=== PATIENT | female | born 1970 | race Hispanic/Latino ===

== ENCOUNTER 2017-06-30 02:57 | Inpatient (IN) | payer OTHER ==
--- NOTE | 2017-06-30 03:17 | C.PDOC ---
History Of Present Illness Pt presents with chest pressure which started around 1 pm.Subsided somewhat, but recurred around 2 hours ago. 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 Was given 1 ntg spray by ems with partial relief. Speaking in complete sentences. Pt states that she was recently started on lisinopril/hctz for HTN. Has strong family history of CAD Time Seen by Provider: 06/30/17 03:06 History Per: Patient History/Exam Limitations: no limitations Onset/Duration Of Symptoms: Hrs Current Symptoms Are (Timing): Still Present Context: Other Severity: Moderate Pain Scale Rating Of: 5 Quality: Dull, Aching, Pressure Associated Symptoms: denies: Nausea Alleviating Factors: None Nitro Therapy Administered: 1, Per EMS, Partial Relief Recent travel outside of the [place]: No Additional History Per: Patient Past Medical History Reviewed: Historical Data, Nursing Documentation, Vital Signs Vital Signs: Last Vital Signs Temp 97.9 F 06/30/17 03:10 Pulse 66 06/30/17 03:10 Resp 16 06/30/17 03:10 BP 148/86 06/30/17 03:10 Pulse Ox 100 06/30/17 04:29 Family History: States: No Known Family Hx Review Of Systems Constitutional: Negative for: Fever, Chills Eyes: Negative for: Vision Change ENT: Negative for: Throat Pain Cardiovascular: Positive for: Chest Pain. Negative for: Palpitations Respiratory: Negative for: Shortness of Breath Gastrointestinal: Negative for: Nausea, Vomiting, Abdominal Pain Genitourinary: Negative for: Dysuria Musculoskeletal: Negative for: Back Pain Skin: Negative for: Rash Neurological: Negative for: Weakness Psych: Negative for: Anxiety Physical Exam - Physical Exam Appears: Non-toxic, No Acute Distress Skin: Warm, Dry Head: Normacephalic Eye(s): bilateral: Normal Inspection, PERRL, EOMI Oral Mucosa: Moist Lips: Normal Appearing Throat: No Erythema Neck: Trachea Midline, Supple Chest: Symmetrical Cardiovascular: Rhythm Regular Respiratory: No Rales, No Rhonchi, No Wheezing Gastrointestinal/Abdominal: Soft, No Tenderness, No Distention Back: No CVA Tenderness Extremity: Normal ROM Extremity: Bilateral: Atraumatic, No Pedal Edema, Normal Color And Temperature, Normal ROM Pulses: Left Dorsalis Pedis: Normal, Right Dorsalis Pedis: Normal Neurological/Psych: Oriented x3, Normal Speech, Normal Cognition Gait: Steady ED Course And Treatment - Laboratory Results Result Diagrams: 06/30/17 03:58 06/30/17 03:58 ECG: Interpreted By Me, Viewed By Me ECG Rhythm: Sinus Rhythm (68), L BBB, Nonspecific Changes O2 Sat by Pulse Oximetry: 100 Pulse Ox Interpretation: Normal - Radiology CXR: Interpreted by Me, Viewed By Me CXR Interpretation: No: Infiltrates, Fracture, Pnemothorax Progress Note: cardiac work up. 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 ) does not meet criteria for code heart Disposition Discussed With Dr.: Julio Uriostegui Comment: accepted the pt on his service and took over the care at 4:45 AM Doctor Will See Patient In The: Hospital Counseled Patient/Family Regarding: Studies Performed, Diagnosis - Disposition Disposition: HOSPITALIZED Disposition Time: 03:17 Condition: FAIR - POA Present On Arrival: None - Clinical Impression Clinical Impression: Chest pain Decision To Admit - Pt Status Changed To: Hospital Disposition Of: Inpatient - Admit Certification Admit to Inpatient:: After my assessment, the patient will require hospitalization for at least two midnights. This is because of the severity of symptoms shown, intensity of services needed, and/or the medical risk in this patient being treated as an outpatient. - InPatient: Physician Admission Certification: I certify that this patient requires 2 or more midnights of care for the following reason:: After my assessment, the patient will require hospitalization for at least two midnights. This is because of the severity of symptoms shown, intensity of services needed, and/or the medical risk in this patient being treated as an outpatient. - . Bed Request Type: Telemetry Admitting Physician: Julio Uriostegui Patient Diagnosis: Chest pain
[2017-06-30 03:19] VITALS: BMI 29.0
[2017-06-30] MEDS ORDERED: Nitroglycerin 2% Ointment Foilpak UD TOP STA (03:19)
[2017-06-30] MEDS ORDERED: Nitroglycerin 2% Ointment Foilpak UD TOP ONE ×2 (04:00→04:05)
[2017-06-30 04:05] LABS: PROTHROMBIN TIME 10.7 SECONDS (9.7-12.2)
[2017-06-30 04:05] LABS: SQUAMOUS EPITHIAL 1 /hpf (0-5); URINE BILIRUBIN NEGATIVE (NEGATIVE); URINE BLOOD NEGATIVE (NEGATIVE); URINE CLARITY Clear (Clear); URINE COLOR Straw (YELLOW); URINE GLUCOSE (UA) NORMAL (Normal); URINE LEUKOCYTE ESTERASE NEG Leu/uL (Negative); URINE NITRATE NEGATIVE (NEGATIVE); URINE PROTEIN NEGATIVE (NEGATIVE); URINE UROBILINOGEN NORMAL mg/dL (0.2-1.0)
[2017-06-30 04:06] LABS: BASO # 0.1 K/uL (0.0-0.2); EOS # 0.2 K/uL (0.0-0.7); EOS % 3.3 % (0.0-4.0); HEMOGLOBIN 12.5 g/dL (11.0-16.0); LYMPH # 2.2 K/uL (1.0-4.3); LYMPH % 31.5 % (20.0-40.0); MEAN CELL VOLUME 78.3 fL (81.0-99.0); MEAN CORPUSCULAR HEMOGLOBIN 26.7 pg (27.0-31.0); MEAN CORPUSCULAR HGB CONC 34.1 g/dL (33.0-37.0); MEAN PLATELET VOLUME 8.6 fL (7.2-11.7); MONO # 0.5 K/uL (0.0-0.8); MONO % 7.6 % (0.0-10.0); NEUT % 56.6 % (50.0-75.0); NRBC % 0.1 % (0.0-2.0); RBC 4.68 Mil/uL (3.80-5.20); RED CELL DISTRIBUTION WIDTH 15.5 % (11.5-14.5); WHITE BLOOD COUNT 7.1 K/uL (4.8-10.8)
[2017-06-30 04:15] LABS: ALB/GLOB RATIO 1.4 (1.0-2.1); CALCIUM 8.4 mg/dl (8.6-10.4); GFR AFRICAN-AMERICAN > 60; GFR NON-AFRICAN AMERICAN > 60; HDL CHOLESTEROL 51 mg/dL (30-70); LIPASE 159 U/L (23-300)
[2017-06-30 04:26] LABS: B-TYPE NATRIURETIC PEPTIDE 87.1 pg/mL (0-450); LDL CHOLESTEROL 106 mg/dL (0-129)
[2017-06-30 04:32] LABS: ALT/SGPT 20 U/L (9-52); AST/SGOT 40 U/L (14-36); BLOOD UREA NITROGEN 22 mg/dL (7-17)
--- NOTE | 2017-06-30 08:35 | RAD ---
Chest x-ray single frontal view History: Chest pain. Comparison: 06/30/2017 Findings: No focal infiltrate or effusion. Heart size within normal limits. Impression: No focal infiltrate or effusion.
--- NOTE | 2017-06-30 09:00 | CP.PCM.HP ---
History of Present Illness - History of Present Illness History of Present Illness: CC: chest pressure for 1 day duration HPI: 47 yrs old female recently diagnosed with HTN and started on BP meds. After that she started to have increasing episodes of chest pain.2 weeks ago while in [place] vacationing she started to have mid sternal pain and pressure like sensation after waiting some time pain subsided. again last night she felt palpitation and mid sternal pressure and not feeling well. both hand has heaviness. palpitation noted and mild dizziness. H/O gastric ulcer 20yrs ago. No other medical history. PMH: recently diagnosed with HTN gastric ulcer in the past left renal cyst and s/p embolization Surgical: h/o left renal embolization allergy: morphine FH: Father and Grand father had CAD at age 50s. Medications: pt did not remember the name But had EKG in PMD office which was some abnormal. 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 AO*3 no weakness labs noted EKg showing evidence of LBBB noted JAMEEL negative a/p: pt 47 F H/O HTN family H/O cad premature EKG changed REnal cyst treatment will get cardiology eval echo jameel will get old EKG continue aspirin betablocker will f/u Present on Admission - Present on Admission Any Indicators Present on Admission: No History of DVT/PE: No History of Uncontrolled Diabetes: No Urinary Catheter: No Decubitus Ulcer Present: No Past Patient History - Past Social History Smoking Status: Never Smoked - CARDIAC Hx Hypertension: Yes - PSYCHIATRIC Hx Substance Use: No Meds Allergies/Adverse Reactions: Allergies Allergy/AdvReac Type Severity Reaction Status Date / Time morphine AdvReac Severe VOMITING Verified 06/30/17 03:18 Results - Vital Signs Recent Vital Signs: Last Vital Signs Temp 98.1 F 06/30/17 08:13 Pulse 56 L 06/30/17 08:13 Resp 14 06/30/17 08:13 BP 106/56 L 06/30/17 08:13 Pulse Ox 98 06/30/17 08:13 - Labs Result Diagrams: 06/30/17 03:58 06/30/17 03:58 Labs: Laboratory Results - last 24 hr 06/30/17 06/30/1718 03:58 03:58 03:58 WBC 7.1 RBC 4.68 Hgb 12.5 Hct 36.7 MCV 78.3 L MCH 26.7 L MCHC 34.1 RDW 15.5 H Plt Count 292 MPV 8.6 Neut % (Auto) 56.6 Lymph % (Auto) 31.5 [place] % (Auto) 7.6 Eos % (Auto) 3.3 Baso % (Auto) 1.0 Neut # 4.0 Lymph # 2.2 [place] # 0.5 Eos # 0.2 Baso # 0.1 PT 10.7 INR 1.0 APTT 28 Sodium 133 Potassium 4.2 Chloride 100 Carbon Dioxide 25 Anion Gap 12 BUN 22 H Creatinine 0.6 L Est GFR ( Amer) > 60 Est GFR (Non-Af Amer) > 60 Random Glucose 109 H Calcium 8.4 L Total Bilirubin 0.5 AST 40 H ALT 20 Alkaline Phosphatase 69 Troponin I < 0.0120 NT-Pro-B Natriuret Pep 87.1 Total Protein 6.8 Albumin 4.0 Globulin 2.9 Albumin/Globulin Ratio 1.4 Triglycerides 93 Cholesterol 175 LDL Cholesterol Direct 106 HDL Cholesterol 51 Lipase 159 Urine Color Urine Clarity Urine pH Ur Specific [place] Urine Protein Urine Glucose (UA) Urine Ketones Urine Blood Urine Nitrate Urine Bilirubin Urine Urobilinogen Ur Leukocyte Esterase Urine WBC (Auto) Urine RBC (Auto) Ur Squamous Epith Cells Urine HCG, Qual Blood Type Antibody Screen 06/30/17 06/30/17 06/30/17 04:00 04:00 04:25 WBC RBC Hgb Hct MCV MCH MCHC RDW Plt Count MPV Neut % (Auto) Lymph % (Auto) [place] % (Auto) Eos % (Auto) Baso % (Auto) Neut # Lymph # [place] # Eos # Baso # PT INR APTT Sodium Potassium Chloride Carbon Dioxide Anion Gap BUN Creatinine Est GFR ( Amer) Est GFR (Non-Af Amer) Random Glucose Calcium Total Bilirubin AST ALT Alkaline Phosphatase Troponin I NT-Pro-B Natriuret Pep Total Protein Albumin Globulin Albumin/Globulin Ratio Triglycerides Cholesterol LDL Cholesterol Direct HDL Cholesterol Lipase Urine Color Straw Urine Clarity Clear Urine pH 5.0 Ur Specific [place] 1.008 Urine Protein Negative Urine Glucose (UA) Normal Urine Ketones Negative Urine Blood Negative Urine Nitrate Negative Urine Bilirubin Negative Urine Urobilinogen Normal Ur Leukocyte Esterase Neg Urine WBC (Auto) < 1 Urine RBC (Auto) < 1 Ur Squamous Epith Cells 1 Urine HCG, Qual Negative Blood Type O NEGATIVE Antibody Screen Negative
[2017-06-30 10:10] LABS: CK-MB 0.42 ng/mL (0.0-3.38)
--- NOTE | 2017-06-30 21:51 | CP.PCM.CON ---
History of Present Illness - History of Present Illness History of Present Illness: 47 F with strong family hx of CAD admitted for chest pressure and new LBBB Patient episodes of chest pressure some times exertional Patient was given option of stress test Vs. Cardiac cath Patient would like to undergo cath benefits and risks explained For cath tomorrow NPO after midnight Past Patient History - Past Medical History & Family History Past Medical History?: Yes - Past Social History Smoking Status: Never Smoked - CARDIAC Hx Cardiac Disorders: Yes Hx Hypertension: Yes - MUSCULOSKELETAL/RHEUMATOLOGICAL Hx Falls: No - PSYCHIATRIC Hx Psychophysiologic Disorder: No Hx Substance Use: No Meds Allergies/Adverse Reactions: Allergies Allergy/AdvReac Type Severity Reaction Status Date / Time morphine AdvReac Severe VOMITING Verified 06/30/17 03:18 - Medications Medications: Current Medications Aspirin (Aspirin Chewable) 81 mg PO DAILY JORY Last Admin: 06/30/17 09:41 Dose: 81 mg Results - Vital Signs Recent Vital Signs: Last Vital Signs Temp 97.6 F 06/30/17 17:30 Pulse 74 06/30/17 18:29 Resp 20 06/30/17 17:30 BP 136/84 06/30/17 17:30 Pulse Ox 97 06/30/17 17:30 - Labs Result Diagrams: 06/30/17 03:58 06/30/17 03:58 Labs: Laboratory Results - last 24 hr 06/30/17 06/30/17 06/30/17 03:58 03:58 03:58 WBC 7.1 RBC 4.68 Hgb 12.5 Hct 36.7 MCV 78.3 L MCH 26.7 L MCHC 34.1 RDW 15.5 H Plt Count 292 MPV 8.6 Neut % (Auto) 56.6 Lymph % (Auto) 31.5 [place] % (Auto) 7.6 Eos % (Auto) 3.3 Baso % (Auto) 1.0 Neut # 4.0 Lymph # 2.2 [place] # 0.5 Eos # 0.2 Baso # 0.1 PT 10.7 INR 1.0 APTT 28 Sodium 133 Potassium 4.2 Chloride 100 Carbon Dioxide 25 Anion Gap 12 BUN 22 H Creatinine 0.6 L Est GFR ( Amer) > 60 Est GFR (Non-Af Amer) > 60 Random Glucose 109 H Calcium 8.4 L Total Bilirubin 0.5 AST 40 H ALT 20 Alkaline Phosphatase 69 Total Creatine Kinase CK-MB (Mass) Troponin I < 0.0120 NT-Pro-B Natriuret Pep 87.1 Total Protein 6.8 Albumin 4.0 Globulin 2.9 Albumin/Globulin Ratio 1.4 Triglycerides 93 Cholesterol 175 LDL Cholesterol Direct 106 HDL Cholesterol 51 Lipase 159 Urine Color Urine Clarity Urine pH Ur Specific [place] Urine Protein Urine Glucose (UA) Urine Ketones Urine Blood Urine Nitrate Urine Bilirubin Urine Urobilinogen Ur Leukocyte Esterase Urine WBC (Auto) Urine RBC (Auto) Ur Squamous Epith Cells Urine HCG, Qual Blood Type Antibody Screen 06/30/17 06/30/17 06/30/17 04:00 04:00 04:25 WBC RBC Hgb Hct MCV MCH MCHC RDW Plt Count MPV Neut % (Auto) Lymph % (Auto) [place] % (Auto) Eos % (Auto) Baso % (Auto) Neut # Lymph # [place] # Eos # Baso # PT INR APTT Sodium Potassium Chloride Carbon Dioxide Anion Gap BUN Creatinine Est GFR ( Amer) Est GFR (Non-Af Amer) Random Glucose Calcium Total Bilirubin AST ALT Alkaline Phosphatase Total Creatine Kinase CK-MB (Mass) Troponin I NT-Pro-B Natriuret Pep Total Protein Albumin Globulin Albumin/Globulin Ratio Triglycerides Cholesterol LDL Cholesterol Direct HDL Cholesterol Lipase Urine Color Straw Urine Clarity Clear Urine pH 5.0 Ur Specific [place] 1.008 Urine Protein Negative Urine Glucose (UA) Normal Urine Ketones Negative Urine Blood Negative Urine Nitrate Negative Urine Bilirubin Negative Urine Urobilinogen Normal Ur Leukocyte Esterase Neg Urine WBC (Auto) < 1 Urine RBC (Auto) < 1 Ur Squamous Epith Cells 1 Urine HCG, Qual Negative Blood Type O NEGATIVE Antibody Screen Negative 06/30/17 06/30/17 09:39 19:45 WBC RBC Hgb Hct MCV MCH MCHC RDW Plt Count MPV Neut % (Auto) Lymph % (Auto) [place] % (Auto) Eos % (Auto) Baso % (Auto) Neut # Lymph # [place] # Eos # Baso # PT INR APTT Sodium Potassium Chloride Carbon Dioxide Anion Gap BUN Creatinine Est GFR ( Amer) Est GFR (Non-Af Amer) Random Glucose Calcium Total Bilirubin AST ALT Alkaline Phosphatase Total Creatine Kinase 40 47 CK-MB (Mass) 0.42 0.40 Troponin I < 0.0120 < 0.0120 NT-Pro-B Natriuret Pep Total Protein Albumin Globulin Albumin/Globulin Ratio Triglycerides Cholesterol LDL Cholesterol Direct HDL Cholesterol Lipase Urine Color Urine Clarity Urine pH Ur Specific [place] Urine Protein Urine Glucose (UA) Urine Ketones Urine Blood Urine Nitrate Urine Bilirubin Urine Urobilinogen Ur Leukocyte Esterase Urine WBC (Auto) Urine RBC (Auto) Ur Squamous Epith Cells Urine HCG, Qual Blood Type Antibody Screen
--- NOTE | 2017-07-01 08:45 | CARD ---
APPROVED REPORT EXAM: Two-dimensional and M-mode echocardiogram with Doppler and color Doppler. Other Information Quality : GoodRhythm : INDICATION Chest Pain 2D DIMENSIONS IVSd0.9 (0.7-1.1cm)LVDd5.4 (3.9-5.9cm) PWd0.9 (0.7-1.1cm)LVDs3.8 (2.5-4.0cm) FS (%) 29.3 %LVEF (%)55.7 (>50%) M-Mode DIMENSIONS Left Atrium (MM)2.96 (2.5-4.0cm)Aortic Root2.86 (2.2-3.7cm) Aortic Cusp Exc.2.25 (1.5-2.0cm) Mitral Valve MV E Xmixvdzw12.0cm/sMV A Nyoksnfr96.5cm/sE/A ratio0.8 TDI E/Lateral E'0.0E/Medial E'0.0 Tricuspid Valve TR Peak Lgduxgoe401vp/sTR Peak Gr.28boTkBOSC72tiPw LEFT VENTRICLE The left ventricle is normal size. There is normal left ventricular wall thickness. Left ventricle systolic function is normal. The Ejection Fraction is 55-60%. There is mild hypokinesis in the mid-inferoseptal wall. The left ventricular diastolic function is abnormal. Transmitral Doppler flow pattern is Grade I-abnormal relaxation pattern. No left ventricle thrombus noted on this study. RIGHT VENTRICLE The right ventricle is normal size. The right ventricular systolic function is normal. ATRIA The left atrium size is normal. The right atrium size is normal. AORTIC VALVE The aortic valve is mildly thickened. The aortic valve is trileaflet. No aortic regurgitation is present. There is no aortic valvular stenosis. There is no aortic valvular vegetation. MITRAL VALVE Mitral annular calcification is mild. There is no evidence of mitral valve prolapse. There is no mitral valve stenosis. There is no mitral valve regurgitation noted. TRICUSPID VALVE The tricuspid valve is normal in structure. There is trace tricuspid regurgitation. Right ventricular systolic pressure is estimated at less than 30 mmHg. There is no pulmonary hypertension. There is no tricuspid valve prolapse or vegetation. There is no tricuspid valve stenosis. PULMONIC VALVE The pulmonic valve is not well visualized. There is no pulmonic valvular regurgitation. There is no pulmonic valvular stenosis. GREAT VESSELS The aortic root is normal in size. The IVC is normal in size and collapses >50% with inspiration. PERICARDIAL EFFUSION There is no pericardial effusion. There is no pleural effusion. <Conclusion> The left ventricle is normal size. Left ventricle systolic function is normal. The Ejection Fraction is 55-60%. There is mild hypokinesis in the mid-inferoseptal wal compatible with CAD. The left ventricular diastolic function is abnormal. The right ventricle is normal size. The right ventricular systolic function is normal. The left atrium size is normal. The right atrium size is normal. There is trace tricuspid regurgitation.
[2017-07-01] MEDS ORDERED: Midazolam 2 MG/2 ML VIAL ONE (10:05)
[2017-07-01] MEDS ORDERED: Iodixanol 320 MG/ML 100 ML BOTTLE IV ONE (10:06)
[2017-07-01] MEDS ORDERED: Sodium Chloride 0.9% 1,000 ML IV SCH (11:30)
[2017-07-01 15:42] VITALS: RESP 18; TEMP 98; O2SAT 100
[2017-07-01 16:27] VITALS: PULSE 92
--- NOTE | 2017-07-01 16:57 | CP.PCM.PN ---
Subjective - Date & Time of Evaluation Date of Evaluation: 07/01/17 Time of Evaluation: 16:10 - Subjective Subjective: Patient seen today after procedure, denies any chest pain, sob, abdominal pain N/V, numbness or tinglings to the RUE , s/p cardiac cath with R radial approach- normal coronaries Objective - Vital Signs/Intake and Output Vital Signs (last 24 hours): Temp Pulse Resp BP Pulse Ox 98 F 92 H 18 149/92 H 100 07/01/17 15:32 07/01/17 16:16 07/01/17 15:32 07/01/17 15:32 07/01/17 15:32 Intake and Output: 07/01/17 07/01/17 06:59 18:59 Intake Total 200 Balance 200 - Medications Medications: Current Medications Acetaminophen (Tylenol 325mg Tab) 650 mg PO Q6 PRN PRN Reason: Pain, moderate (4-7) Aspirin (Aspirin Chewable) 81 mg PO DAILY JORY Last Admin: 07/01/17 11:40 Dose: Not Given Enoxaparin Sodium (Lovenox) 40 mg SC DAILY [facility] - Labs Labs: 06/30/17 03:58 06/30/17 03:58 PT 10.7 SECONDS (9.7-12.2) 06/30/17 03:58 INR 1.0 06/30/17 03:58 APTT 28 SECONDS (21-34) 06/30/17 03:58 Assessment and Plan - Assessment and Plan (Free Text) Assessment: A/P 47 yr old female admitted with chest pain troponin x 3 - negative s/p cardiac cath - normal coronaries D/W Dr. Stiles, cleared fro discharge home today from cardiology standpoint and continue losartan 25 mg po daily d/w Dr. Moody riddle for discharge home today , and f/u with PMD in 1 week discharge plan discussed with patient , who understands and agrees with plan PATIENT INSTRUCTED TO MONITOR FOR ANY SWELLING OR NUMBNESS/ TINGLINGS , TO THE RUE OR ANY CONCERNING SYMPTOMS PLEASE RETURNS TO ED
[2017-07-01 18:03] VITALS: BP 145/82
--- NOTE | 2017-07-01 18:35 | CP.PCM.DIS ---
Provider - Provider Date of Admission: 06/30/17 04:40 Attending physician: Julio Uriostegui MD Hospital Course - Lab Results Lab Results: Most Recent Lab Values WBC 7.1 K/uL (4.8-10.8) 06/30/17 03:58 RBC 4.68 Mil/uL (3.80-5.20) 06/30/17 03:58 Hgb 12.5 g/dL (11.0-16.0) 06/30/17 03:58 Hct 36.7 % (34.0-47.0) 06/30/17 03:58 MCV 78.3 fL (81.0-99.0) L 06/30/17 03:58 MCH 26.7 pg (27.0-31.0) L 06/30/17 03:58 MCHC 34.1 g/dL (33.0-37.0) 06/30/17 03:58 RDW 15.5 % (11.5-14.5) H 06/30/17 03:58 Plt Count 292 K/uL (130-400) 06/30/17 03:58 MPV 8.6 fL (7.2-11.7) 06/30/17 03:58 Neut % (Auto) 56.6 % (50.0-75.0) 06/30/17 03:58 Lymph % (Auto) 31.5 % (20.0-40.0) 06/30/17 03:58 [place] % (Auto) 7.6 % (0.0-10.0) 06/30/17 03:58 Eos % (Auto) 3.3 % (0.0-4.0) 06/30/17 03:58 Baso % (Auto) 1.0 % (0.0-2.0) 06/30/17 03:58 Neut # 4.0 K/uL (1.8-7.0) 06/30/17 03:58 Lymph # 2.2 K/uL (1.0-4.3) 06/30/17 03:58 [place] # 0.5 K/uL (0.0-0.8) 06/30/17 03:58 Eos # 0.2 K/uL (0.0-0.7) 06/30/17 03:58 Baso # 0.1 K/uL (0.0-0.2) 06/30/17 03:58 PT 10.7 SECONDS (9.7-12.2) 06/30/17 03:58 INR 1.0 06/30/17 03:58 APTT 28 SECONDS (21-34) 06/30/17 03:58 Sodium 133 mmol/L (132-148) 06/30/17 03:58 Potassium 4.2 mmol/L (3.6-5.2) 06/30/17 03:58 Chloride 100 mmol/L (98-107) 06/30/17 03:58 Carbon Dioxide 25 mmol/L (22-30) 06/30/17 03:58 Anion Gap 12 (10-20) 06/30/17 03:58 BUN 22 mg/dL (7-17) H 06/30/17 03:58 Creatinine 0.6 mg/dL (0.7-1.2) L 06/30/17 03:58 Est GFR ( Amer) > 60 06/30/17 03:58 Est GFR (Non-Af Amer) > 60 06/30/17 03:58 Random Glucose 109 mg/dL (65-105) H 06/30/17 03:58 Calcium 8.4 mg/dl (8.6-10.4) L 06/30/17 03:58 Total Bilirubin 0.5 mg/dL (0.2-1.3) 06/30/17 03:58 AST 40 U/L (14-36) H 06/30/17 03:58 ALT 20 U/L (9-52) 06/30/17 03:58 Alkaline Phosphatase 69 U/L (38-126) 06/30/17 03:58 Total Creatine Kinase 47 U/L (30-135) 06/30/17 19:45 CK-MB (Mass) 0.40 ng/mL (0.0-3.38) 06/30/17 19:45 Troponin I < 0.0120 ng/mL (0.00-0.120) 06/30/17 19:45 NT-Pro-B Natriuret Pep 87.1 pg/mL (0-450) 06/30/17 03:58 Total Protein 6.8 g/dL (6.3-8.3) 06/30/17 03:58 Albumin 4.0 g/dL (3.5-5.0) 06/30/17 03:58 Globulin 2.9 gm/dL (2.2-3.9) 06/30/17 03:58 Albumin/Globulin Ratio 1.4 (1.0-2.1) 06/30/17 03:58 Triglycerides 93 mg/dL (0-149) 06/30/17 03:58 Cholesterol 175 mg/dL (0-199) 06/30/17 03:58 LDL Cholesterol Direct 106 mg/dL (0-129) 06/30/17 03:58 HDL Cholesterol 51 mg/dL (30-70) 06/30/17 03:58 Lipase 159 U/L (23-300) 06/30/17 03:58 Urine Color Straw (YELLOW) 06/30/17 04:00 Urine Clarity Clear (Clear) 06/30/17 04:00 Urine pH 5.0 (5.0-8.0) 06/30/17 04:00 Ur Specific [place] 1.008 (1.003-1.030) 06/30/17 04:00 Urine Protein Negative mg/dL (NEGATIVE) 06/30/17 04:00 Urine Glucose (UA) Normal mg/dL (Normal) 06/30/17 04:00 Urine Ketones Negative mg/dL (NEGATIVE) 06/30/17 04:00 Urine Blood Negative (NEGATIVE) 06/30/17 04:00 Urine Nitrate Negative (NEGATIVE) 06/30/17 04:00 Urine Bilirubin Negative (NEGATIVE) 06/30/17 04:00 Urine Urobilinogen Normal mg/dL (0.2-1.0) 06/30/17 04:00 Ur Leukocyte Esterase Neg Shari/uL (Negative) 06/30/17 04:00 Urine WBC (Auto) < 1 /hpf (0-5) 06/30/17 04:00 Urine RBC (Auto) < 1 /hpf (0-3) 06/30/17 04:00 Ur Squamous Epith Cells 1 /hpf (0-5) 06/30/17 04:00 Urine HCG, Qual Negative (NEGATIVE) 06/30/17 04:00 Blood Type O NEGATIVE 06/30/17 04:25 Antibody Screen Negative 06/30/17 04:25 Discharge Plan - Discharge Medications Prescriptions: Losartan [Cozaar] 25 mg PO DAILY #30 tab - Follow Up Plan Condition: FAIR Disposition: HOME/ ROUTINE Instructions: Losartan (By mouth), Chest Pain (DC), Heart Healthy Diet (DC) Additional Instructions: Please follow up with PMD in 1 week Continue medication as per Med. Rec. Referrals: Julio Uriostegui MD [Staff Provider] -
[2017-07-01] MEDS ORDERED: Enoxaparin 40 mg Syringe SC SCH (22:00)
--- NOTE | 2017-07-02 23:20 | CARD ---
APPROVED REPORT EKG Measurement Heart [id number] <Conclusion> Normal sinus rhythm Left bundle branch block Abnormal ECG
== END 2017-07-01 18:45 | disposition home or self-care (01) | DRG 287 ==
LOC: C.ER 02:57 → C.9E 04:40 → C.6T 16:26
PROVIDERS: ADMIT Internal Medicine; ATTEND Internal Medicine
PROC: 4A023N7 Measurement of Cardiac Sampling and Pressure, Left Heart, Percutaneous Approach (ICD-10-PCS; principal; 2017-07-01)
PROC: B211YZZ Fluoroscopy of Multiple Coronary Arteries using Other Contrast (ICD-10-PCS; 2017-07-01)
PROC: B215YZZ Fluoroscopy of Left Heart using Other Contrast (ICD-10-PCS; 2017-07-01)
DX: R07.89 Other chest pain (principal); I10 Essential (primary) hypertension; I44.7 Left bundle-branch block, unspecified; Z82.49 Family history of ischemic heart disease and other diseases of the circulatory system; R00.2 Palpitations